=== PATIENT | male | born 1985 | race Two or more races ===

== ENCOUNTER 2019-06-17 19:01 | Emergency (ER) | payer SELFPAY ==
[~2019-06-17] VITALS: Ht 167.6 cm; Wt 65.8 kg
[2019-06-17 19:40] VITALS: BP 132/86
[2019-06-17] MEDS ORDERED: FLUORESCEIN SOD 1 MG TEST STRIP LEFTEYE ONE (21:00)
[2019-06-17] MEDS ORDERED: TETRACAINE HCL 0.5% OPTH(EYE) SOLN 4ML LEFTEYE ONE (21:00)
== END 2019-06-17 21:44 | disposition home or self-care (01) ==
LOC: ER 19:04
DX: S05.8X2A Other injuries of left eye and orbit, initial encounter (principal); X58.XXXA Exposure to other specified factors, initial encounter; Y93.89 Activity, other specified; Y99.8 Other external cause status; Y92.89 Other specified places as the place of occurrence of the external cause

== ENCOUNTER 2020-05-02 13:50 | Inpatient (IN) | payer MEDICAID, OTHER ==
[~2020-05-02] VITALS: Ht 167.6 cm; Wt 60.8 kg
[2020-05-02] MEDS ORDERED: SODIUM CHLORIDE 0.9% 1,000 ML IVB ONE (14:07)
[2020-05-02] MEDS ORDERED: PANTOPRAZOLE 40 MG/10 ML VIAL INJ IV STA (14:07)
[2020-05-02] MEDS ORDERED: KETOROLAC TROMETH 30 MG/ML 1ML VIAL IV ONE (14:15)
[2020-05-02] MEDS ORDERED: ONDANSETRON HCL 4 MG/2 ML VIAL IV ONE (14:15)
[2020-05-02 14:24] LABS: Urine WBC None Seen /hpf (0 - 3)
[2020-05-02 14:41] LABS: Urine Bacteria FEW /hpf (None Seen); Urine Blood Negative /uL (Negative); Urine Specific Gravity 1.007 (1.001-1.035)
[2020-05-02 15:45] LABS: Basophils # (auto) 0.3 10 ^3/uL (0-0.2); Basophils % (auto) 1.8 % (0.0-2.0); Eosinophils # (auto) 0.1 10 ^3/uL (0-0.8); Eosinophils % (auto) 0.7 % (0.0-7.0); Hemoglobin 15.9 g/dL (13.5-17.5); Lymphocytes # (auto) 3.2 10 ^3/uL (0.4-5.4); Lymphocytes % (auto) 18.9 % (10.0-50.0); Mean Corpuscular Volume 68.1 fL (80.0-100.0); Monocytes # (auto) 1.3 10 ^3/uL (0-1.3); Monocytes % (auto) 7.5 % (0.0-12.0); Neutrophils # (auto) 12.1 10 ^3/uL (1.6-8.6); Neutrophils % (auto) 71.1 % (37.0-80.0); Nucleated Red Blood Cells % 0.3 %; Platelet Count (auto) 305 10^3/uL (140-450); Red Blood Cells 4.99 10^6/uL (4.5-5.90)
[2020-05-02 15:46] LABS: Mean Corpuscular Hemoglobin 31.9 pg (28.0-32.0); Mean Corpuscular Hgb Conc. 46.9 g/dL (32.0-36.0)
[2020-05-02] MEDS ORDERED: MORPHINE SULF INJ 2 MG/ML SYRINGE 1ML IV PRN (16:00)
[2020-05-02] MEDS ORDERED: NITROGLYCERIN 0.4 MG SL TAB SL PRN (16:00)
[2020-05-02] MEDS ORDERED: SODIUM CHLORIDE 0.9% 1,000 ML IV SCH (16:20)
[2020-05-02] MEDS ORDERED: cefTRIAXone 1GM/50ML D5W 50 ML IV ONE (16:30)
[2020-05-02] MEDS ORDERED: FAMOTIDINE (10MG/ML) 2ML VL IV SCH (16:30)
[2020-05-02] MEDS: LACTATED RINGER'S 1,000 ML IV SCH ×2 (16:38→23:10)
[2020-05-02 18:34] LABS: Alanine Aminotransferase 57 U/L (16-61); Alkaline Phosphatase 134 U/L (45-117); Anion Gap 15.6 (5-15); Aspartate Aminotransferase 55.2 U/L (15-37); BUN/Creatinine Ratio 15.6; Blood Urea Nitrogen 7 mg/dL (7-18); Calcium 8.4 mg/dL (8.5-10.1); Carbon Dioxide 26.4 mmol/L (21-32); Chloride 102 mmol/L (98-107); GFR African American 278 mL/min; GFR Non-African American 230 mL/min; Glucose 80.4 mg/dL (74-106); Sodium 144 mmol/L (136-145)
[2020-05-02 18:35] LABS: Albumin 3.6 g/dL (3.4-5.0); Bilirubin, Total 0.2 mg/dL (0.2-1.0); Total Protein 6.2 g/dL (6.4-8.2)
[2020-05-02 18:47] LABS: Lipase 160.8 U/L (73-393)
[2020-05-02] MEDS: MORPHINE SULF INJ 2 MG/ML SYRINGE 1ML IV PRN ×2 (18:56→23:12)
[2020-05-02 19:04] LABS: Cholesterol 288 mg/dL (< 200); HDL Cholesterol 29 mg/dL (40-59); Triglycerides > 4000 mg/dL (< 150)
[2020-05-02 22:00] VITALS: BP 142/81
[2020-05-02] MEDS: metroNIDAZOLE 500MG/100ML 100 ML IV SCH (22:15)
[2020-05-02] MEDS: PANTOPRAZOLE 40 MG/10 ML VIAL INJ IV SCH (22:15)
[2020-05-02] MEDS: PROMETHAZINE HCL 25 MG/ML 1ML IV PRN (23:14)
[2020-05-03] VITALS (15 sets, daily range): BP systolic 99–127; BP diastolic 54–85
[2020-05-03] MEDS: MORPHINE SULF INJ 2 MG/ML SYRINGE 1ML IV PRN ×3 (03:12→11:26)
[2020-05-03] MEDS: LACTATED RINGER'S 1,000 ML IV SCH ×3 (06:37→16:30)
[2020-05-03] MEDS: metroNIDAZOLE 500MG/100ML 100 ML IV SCH ×3 (06:37→21:43)
[2020-05-03] MEDS: PROMETHAZINE HCL 25 MG/ML 1ML IV PRN ×2 (06:48→16:37)
[2020-05-03 07:17] LABS: Lymphocytes # (auto) 2.3 10 ^3/uL (0.4-5.4); Monocytes # (auto) 1.1 10 ^3/uL (0-1.3); Neutrophils # (auto) 8.8 10 ^3/uL (1.6-8.6); Platelet Count (auto) 275 10^3/uL (140-450); White Blood Cell 12.4 10^3/uL (4.4-10.8)
[2020-05-03 07:20] LABS: Basophils # (auto) 0.1 10 ^3/uL (0-0.2); Basophils % (auto) 0.6 % (0.0-2.0); Eosinophils # (auto) 0.1 10 ^3/uL (0-0.8); Eosinophils % (auto) 1.1 % (0.0-7.0); Lymphocytes % (auto) 18.2 % (10.0-50.0); Monocytes % (auto) 9.3 % (0.0-12.0); Neutrophils % (auto) 70.8 % (37.0-80.0); Nucleated Red Blood Cells % 0.1 %
[2020-05-03 07:49] LABS: Potassium 3.8 mmol/L (3.5-5.1)
[2020-05-03 07:53] LABS: Albumin 1.5 g/dL (3.4-5.0)
[2020-05-03 09:13] LABS: Hemoglobin 10.6 g/dL (13.5-17.5); Red Blood Cells 3.47 10^6/uL (4.5-5.90)
[2020-05-03 09:14] LABS: Mean Corpuscular Hemoglobin 30.4 pg (28.0-32.0)
[2020-05-03 09:16] LABS: BUN/Creatinine Ratio 10.4; Bilirubin, Total 3.1 mg/dL (0.2-1.0); Total Protein 9.1 g/dL (6.4-8.2)
[2020-05-03] MEDS: cefTRIAXone 1GM/50ML D5W 50 ML IV SCH (11:02)
[2020-05-03] MEDS: PANTOPRAZOLE 40 MG/10 ML VIAL INJ IV SCH ×2 (11:02→21:43)
[2020-05-03] MEDS ORDERED: D5W 5% 1,000 ML IV PRN (11:15)
[2020-05-03] MEDS ORDERED: InsuLIN R (HUMAN) 100 UNITS in SODIUM CHL 0.9% 99 ML IV SCH (11:30)
[2020-05-03 12:00] LABS: Alcohol, Urine < 3.0 mg/dL (0-10); Amphetamine Screen, Urine NEGATIVE (NEGATIVE); Barbiturate Scree,Urine NEGATIVE (NEGATIVE); Benzodiazephine Screen, Urine NEGATIVE (NEGATIVE); Cannabinoid Screen, Urine POSITIVE (NEGATIVE); Cocaine Screen, Urine NEGATIVE (NEGATIVE); Opiate Scree,Urine NEGATIVE (NEGATIVE); Phencyclidine Screen, Urine NEGATIVE (NEGATIVE)
[2020-05-03] MEDS: ACCU-CHEK COMFORT CURVE STRIP VI SCH ×11 (12:00→23:02)
[2020-05-03] MEDS ORDERED: DEXTROSE 50% SYRINGE 50 ML IV ONE (13:10)
[2020-05-03] MEDS ORDERED: DEXTROSE (50%) 50ML SYRG IV ONE (13:15)
[2020-05-03] MEDS ORDERED: DEXTROSE (50%) 50ML SYRG IV PRN (14:15)
[2020-05-03 14:16] LABS: Calcium 8.8 mg/dL (8.5-10.1)
[2020-05-03] MEDS: D5W 5% 1,000 ML IV PRN (17:38)
[2020-05-03] MEDS: InsuLIN R (HUMAN) 100 UNITS in SODIUM CHL 0.9% 99 ML IV SCH (19:53)
[2020-05-04] VITALS (12 sets, daily range): BP systolic 99–132; BP diastolic 63–84
[2020-05-04] MEDS: ACCU-CHEK COMFORT CURVE STRIP VI SCH ×14 (00:15→23:39)
[2020-05-04] MEDS: InsuLIN R (HUMAN) 100 UNITS in SODIUM CHL 0.9% 99 ML IV SCH (00:16)
[2020-05-04] MEDS: D5W 5% 1,000 ML IV PRN ×3 (00:20→10:18)
[2020-05-04] MEDS: LACTATED RINGER'S 1,000 ML IV SCH ×4 (00:20→23:39)
[2020-05-04 05:00] LABS: Basophils # (auto) 0 10 ^3/uL (0-0.2); Basophils % (auto) 0.2 % (0.0-2.0); Eosinophils # (auto) 0.1 10 ^3/uL (0-0.8); Eosinophils % (auto) 1.1 % (0.0-7.0); Hematocrit 41.8 % (41.0-53.0); Hemoglobin 14.2 g/dL (13.5-17.5); Lymphocytes # (auto) 1.5 10 ^3/uL (0.4-5.4); Lymphocytes % (auto) 14.2 % (10.0-50.0); Mean Corpuscular Hemoglobin 31.8 pg (28.0-32.0); Mean Corpuscular Volume 93.5 fL (80.0-100.0); Monocytes # (auto) 0.6 10 ^3/uL (0-1.3); Monocytes % (auto) 5.5 % (0.0-12.0); Neutrophils # (auto) 8.1 10 ^3/uL (1.6-8.6); Nucleated Red Blood Cells % 0.1 %; Platelet Count (auto) 214 10^3/uL (140-450); Red Blood Cells 4.47 10^6/uL (4.5-5.90); Red Cell Distribution Width 13.3 % (11.8-14.3); White Blood Cell 10.3 10^3/uL (4.4-10.8)
[2020-05-04 05:12] LABS: Potassium 4.2 mmol/L (3.5-5.1)
[2020-05-04 05:15] LABS: BUN/Creatinine Ratio 6.3
[2020-05-04] MEDS: metroNIDAZOLE 500MG/100ML 100 ML IV SCH ×3 (05:44→21:57)
[2020-05-04] MEDS: PANTOPRAZOLE 40 MG/10 ML VIAL INJ IV SCH ×2 (09:36→21:57)
[2020-05-04] MEDS: cefTRIAXone 1GM/50ML D5W 50 ML IV SCH (09:36)
[2020-05-04] MEDS ORDERED: ACETAMINOPHEN 325 MG TAB PO PRN (16:15)
[2020-05-05] MEDS: ACCU-CHEK COMFORT CURVE STRIP VI SCH ×2 (04:17→08:19)
[2020-05-05 04:46] VITALS: BP 110/72
[2020-05-05] MEDS: LACTATED RINGER'S 1,000 ML IV SCH ×3 (05:35→18:06)
[2020-05-05 05:49] LABS: Basophils # (auto) 0 10 ^3/uL (0-0.2); Basophils % (auto) 0.6 % (0.0-2.0); Eosinophils # (auto) 0.3 10 ^3/uL (0-0.8); Eosinophils % (auto) 3.7 % (0.0-7.0); Hematocrit 40.8 % (41.0-53.0); Hemoglobin 13.5 g/dL (13.5-17.5); Lymphocytes # (auto) 2.1 10 ^3/uL (0.4-5.4); Lymphocytes % (auto) 28.5 % (10.0-50.0); Mean Corpuscular Hemoglobin 31.3 pg (28.0-32.0); Mean Corpuscular Hgb Conc. 33.1 g/dL (32.0-36.0); Mean Corpuscular Volume 94.5 fL (80.0-100.0); Monocytes # (auto) 0.6 10 ^3/uL (0-1.3); Monocytes % (auto) 8.4 % (0.0-12.0); Neutrophils # (auto) 4.2 10 ^3/uL (1.6-8.6); Neutrophils % (auto) 58.8 % (37.0-80.0); Platelet Count (auto) 174 10^3/uL (140-450); Red Blood Cells 4.31 10^6/uL (4.5-5.90); Red Cell Distribution Width 13.2 % (11.8-14.3); White Blood Cell 7.2 10^3/uL (4.4-10.8)
[2020-05-05] MEDS: metroNIDAZOLE 500MG/100ML 100 ML IV SCH ×3 (05:59→22:42)
[2020-05-05 06:05] LABS: BUN/Creatinine Ratio 8.5; Calcium 8.6 mg/dL (8.5-10.1); Potassium 3.6 mmol/L (3.5-5.1)
[2020-05-05 09:00] VITALS: BP 117/71
[2020-05-05] MEDS: cefTRIAXone 1GM/50ML D5W 50 ML IV SCH (09:55)
[2020-05-05] MEDS: PANTOPRAZOLE 40 MG/10 ML VIAL INJ IV SCH ×2 (09:56→22:42)
[2020-05-05 13:00] VITALS: BP 109/75
[2020-05-05 17:19] VITALS: BP 121/70
[2020-05-05 22:00] VITALS: BP 126/77
[2020-05-06] MEDS: LACTATED RINGER'S 1,000 ML IV SCH ×2 (01:35→08:15)
[2020-05-06 05:00] VITALS: BP 102/66
[2020-05-06] MEDS: metroNIDAZOLE 500MG/100ML 100 ML IV SCH (05:10)
[2020-05-06 05:35] LABS: Basophils # (auto) 0 10 ^3/uL (0-0.2); Basophils % (auto) 0.8 % (0.0-2.0); Eosinophils # (auto) 0.2 10 ^3/uL (0-0.8); Eosinophils % (auto) 5.4 % (0.0-7.0); Hematocrit 40.6 % (41.0-53.0); Hemoglobin 13.4 g/dL (13.5-17.5); Lymphocytes # (auto) 1.6 10 ^3/uL (0.4-5.4); Lymphocytes % (auto) 39.5 % (10.0-50.0); Mean Corpuscular Hemoglobin 31.1 pg (28.0-32.0); Mean Corpuscular Hgb Conc. 32.9 g/dL (32.0-36.0); Mean Corpuscular Volume 94.6 fL (80.0-100.0); Monocytes # (auto) 0.5 10 ^3/uL (0-1.3); Monocytes % (auto) 13.2 % (0.0-12.0); Neutrophils # (auto) 1.7 10 ^3/uL (1.6-8.6); Neutrophils % (auto) 41.1 % (37.0-80.0); Nucleated Red Blood Cells % 0.3 %; Platelet Count (auto) 172 10^3/uL (140-450); Red Blood Cells 4.29 10^6/uL (4.5-5.90); Red Cell Distribution Width 13.1 % (11.8-14.3); White Blood Cell 4.1 10^3/uL (4.4-10.8)
[2020-05-06 05:55] LABS: BUN/Creatinine Ratio 17.2; Calcium 8.3 mg/dL (8.5-10.1); Potassium 3.6 mmol/L (3.5-5.1)
[2020-05-06 08:58] VITALS: BP 106/69
[2020-05-06] MEDS: cefTRIAXone 1GM/50ML D5W 50 ML IV SCH (09:24)
[2020-05-06] MEDS: PANTOPRAZOLE 40 MG/10 ML VIAL INJ IV SCH (09:31)
[2020-05-06] MEDS ORDERED: FENO145T27 PO (11:02)
[2020-05-06 11:26] VITALS: BP 106/69
[2020-05-06 12:39] VITALS: BP 125/84
== END 2020-05-06 13:30 | disposition home or self-care (01) | DRG 282 ==
LOC: ER 13:50 → TELE 13:51 → TELE-CENTR 17:11 → ICU WEST 05-03 14:18 → TELE-WESTW 05-04 12:18
PROVIDERS: ADMIT Internal Medicine; ATTEND Internal Medicine Pulmonary Disease
DX: K85.20 Alcohol induced acute pancreatitis without necrosis or infection (principal); R65.10 Systemic inflammatory response syndrome (SIRS) of non-infectious origin without acute organ dysfunction; E78.1 Pure hyperglyceridemia; F10.10 Alcohol abuse, uncomplicated; F17.210 Nicotine dependence, cigarettes, uncomplicated; Y90.9 Presence of alcohol in blood, level not specified
CPT/HCPCS: 36415; 74176; 80048; 80053; 80061; 80307; 81001; 82150; 82962; 83605; 83690; 84478; 85025; 96361; 96365; 96366; 96375; C9113; G0378; J0696; J1815; J1885; J2405; J3490

== ENCOUNTER 2020-06-19 00:42 | Emergency (ER) | payer MEDICAID ==
[~2020-06-19] VITALS: Ht 167.6 cm; Wt 65.8 kg
[~2020-06-19 00:42] MED LIST: FENO145T27 PO
[2020-06-19] MEDS ORDERED: IOHEXOL 300 MG/ML 100ML BOTTLE IJ ONE (01:14)
[2020-06-19] MEDS ORDERED: SODIUM CHLORIDE 0.9% 1,000 ML IV ONE (01:15)
[2020-06-19 01:44] LABS: Basophils # (auto) 0.1 10 ^3/uL (0-0.2); Basophils % (auto) 0.8 % (0.0-2.0); Eosinophils # (auto) 0 10 ^3/uL (0-0.8); Eosinophils % (auto) 0.2 % (0.0-7.0); Hematocrit 42.8 % (41.0-53.0); Hemoglobin 14.5 g/dL (13.5-17.5); Lymphocytes # (auto) 2.4 10 ^3/uL (0.4-5.4); Lymphocytes % (auto) 25.4 % (10.0-50.0); Mean Corpuscular Hemoglobin 31.5 pg (28.0-32.0); Mean Corpuscular Hgb Conc. 33.9 g/dL (32.0-36.0); Mean Corpuscular Volume 92.9 fL (80.0-100.0); Monocytes % (auto) 10.2 % (0.0-12.0); Neutrophils % (auto) 63.4 % (37.0-80.0); Nucleated Red Blood Cells % 0.1 %; Platelet Count (auto) 282 10^3/uL (140-450); Red Blood Cells 4.61 10^6/uL (4.5-5.90); Red Cell Distribution Width 13.2 % (11.8-14.3); White Blood Cell 9.5 10^3/uL (4.4-10.8)
[2020-06-19 02:01] LABS: Alanine Aminotransferase 86 U/L (16-61); Albumin 4.3 g/dL (3.4-5.0); Anion Gap 9 (5-15); Aspartate Aminotransferase 54 U/L (15-37); BUN/Creatinine Ratio 18.6; Blood Urea Nitrogen 19 mg/dL (7-18); Calcium 8.7 mg/dL (8.5-10.1); Carbon Dioxide 25 mmol/L (21-32); Chloride 101 mmol/L (98-107); GFR African American 108 mL/min; GFR Non-African American 89 mL/min; Glucose 86 mg/dL (74-106); Potassium 3.9 mmol/L (3.5-5.1); Sodium 135 mmol/L (136-145)
[2020-06-19 02:04] LABS: Alkaline Phosphatase 119 U/L (45-117); Bilirubin, Total 1.2 mg/dL (0.2-1.0); Total Protein 9.1 g/dL (6.4-8.2)
[2020-06-19 02:57] LABS: Urine Bacteria FEW /hpf (None Seen); Urine Blood TRACE /uL (Negative); Urine Mucus FEW (None Seen); Urine Specific Gravity > 1.050 (1.001-1.035); Urine WBC 1 /hpf (0 - 3)
[2020-06-19 03:11] LABS: Amphetamine Screen, Urine POSITIVE (NEGATIVE); Barbiturate Scree,Urine NEGATIVE (NEGATIVE); Benzodiazephine Screen, Urine NEGATIVE (NEGATIVE); Cannabinoid Screen, Urine POSITIVE (NEGATIVE); Cocaine Screen, Urine NEGATIVE (NEGATIVE); Opiate Scree,Urine NEGATIVE (NEGATIVE); Phencyclidine Screen, Urine NEGATIVE (NEGATIVE)
[2020-06-19 05:04] VITALS: BP 98/86
== END 2020-06-19 05:34 | disposition home or self-care (01) ==
LOC: ER 00:42
DX: S01.81XA Laceration without foreign body of other part of head, initial encounter (principal); S40.029A Contusion of unspecified upper arm, initial encounter; S80.10XA Contusion of unspecified lower leg, initial encounter; W22.8XXA Striking against or struck by other objects, initial encounter; Y93.89 Activity, other specified; Y92.89 Other specified places as the place of occurrence of the external cause; Y99.8 Other external cause status
CPT/HCPCS: 12013; 36415; 70450; 71260; 72125; 74177; 80053; 80307; 80320; 81001; 85025; 96360; 99285; J7030; Q9967

== ENCOUNTER 2020-08-24 20:46 | Emergency (ER) | payer MEDICAID, OTHER ==
[~2020-08-24] VITALS: Ht 167.6 cm; Wt 65.8 kg
[2020-08-24] MEDS ORDERED: TETANUS-DIPTH-ACEL PERTUSSIS 0.5ML SYR Tdap IM ONE (21:30)
[2020-08-24] MEDS ORDERED: ONDANSETRON HCL 4 MG/2 ML VIAL IV ONE (22:15)
[2020-08-24] MEDS ORDERED: fentaNYL CITRATE 100 MCG/2 ML VL IV ONE (22:15)
[2020-08-24] MEDS ORDERED: IOHEXOL 350 MG/ML 100ML IJ ONE ×2 (22:21→23:47)
[2020-08-24 23:49] LABS: Basophils # (auto) 0.1 10 ^3/uL (0-0.2); Basophils % (auto) 0.4 % (0.0-2.0); Eosinophils # (auto) 0 10 ^3/uL (0-0.8); Eosinophils % (auto) 0.3 % (0.0-7.0); Hematocrit 42.2 % (41.0-53.0); Hemoglobin 14.7 g/dL (13.5-17.5); Lymphocytes # (auto) 1.8 10 ^3/uL (0.4-5.4); Lymphocytes % (auto) 13.7 % (10.0-50.0); Mean Corpuscular Hemoglobin 32.8 pg (28.0-32.0); Mean Corpuscular Hgb Conc. 34.9 g/dL (32.0-36.0); Mean Corpuscular Volume 94.1 fL (80.0-100.0); Monocytes # (auto) 0.9 10 ^3/uL (0-1.3); Monocytes % (auto) 6.6 % (0.0-12.0); Neutrophils # (auto) 10.6 10 ^3/uL (1.6-8.6); Nucleated Red Blood Cells % 0.1 %; Red Blood Cells 4.48 10^6/uL (4.5-5.90); Red Cell Distribution Width 13.8 % (11.8-14.3); White Blood Cell 13.4 10^3/uL (4.4-10.8)
[2020-08-25 00:02] LABS: Albumin 4.2 g/dL (3.4-5.0); Magnesium 1.9 mg/dL (1.6-2.6)
[2020-08-25 00:05] LABS: Calcium 8.2 mg/dL (8.5-10.1)
[2020-08-25 00:09] LABS: INR 0.97 (0.9-1.15); Partial Thromboplastin Time 27.4 sec (23.0-31.2)
[2020-08-25 00:12] LABS: Bilirubin, Total 0.5 mg/dL (0.2-1.0)
[2020-08-25] MEDS ORDERED: ceFAZolin 1GM/50ML 100 ML IV ONE (00:45)
[2020-08-25] MEDS ORDERED: fentaNYL CITRATE 100 MCG/2 ML VL IV ONE (01:15)
[2020-08-25 02:40] VITALS: BP 151/89
== END 2020-08-25 02:49 | disposition home or self-care (01) ==
LOC: ER 20:48
DX: S41.031A Puncture wound without foreign body of right shoulder, initial encounter (principal); F17.210 Nicotine dependence, cigarettes, uncomplicated; W34.00XA Accidental discharge from unspecified firearms or gun, initial encounter; Y93.89 Activity, other specified; Y92.89 Other specified places as the place of occurrence of the external cause; Y99.8 Other external cause status
CPT/HCPCS: 36415; 71260; 73030; 80053; 83735; 85025; 85610; 85730; 86850; 86900; 86901; 90471; 90715; 96365; 96375; 96376; 99285; J0690; J2405; J3010; Q9967

== ENCOUNTER 2025-02-11 12:48 | Emergency (ER) | payer MEDICAID, OTHER ==
[~2025-02-11] VITALS: Ht 170.2 cm; Wt 68.0 kg
--- NOTE | 2025-02-11 12:57 | ED.PDOC ---
History of Present Illness HPI Comments 39 year old male presents to the ED for the c/c of an Inhalation Injury. Pt states that he was loading something into his car when a can of Break finish cleaner sprayed into his face approx 30 mins ago. Pt states that he experienced Chest Burning, SOB, N/ and 3 episodes of /V after inspiration. Pt is noted to be cu rrently SAT on 96% room air. Pt has a Social Hx of Marijuana and Tobacco abuse. No other symptoms or modifying factors reported at this time. Time Seen by MD: 12:53 Primary Care Provider: LESLEYK Reviewed Notes: Nurses Notes, Plastic Tool Maker Notes, Medications, Allergies Allergies: Coded Allergies: NO KNOWN ALLERGIES (Unverified , 06/17/19) Home Meds Active Scripts Fenofibrate (FENOFIBRATE) 145 Mg Tab, 1 TAB PO DAILY, #90 TAB 1 Refill Prov:AJ ALEJO MD 05/06/20 Information Source: Patient, Emergency Med Personnel Mode of Arrival: EMS Severity: Moderate Timing: Minutes Duration: Since onset, Minutes Prehospital treatment: Oxygen Past Medical History Past Medical History (Other): Hepititis C Surgical History: Denies all surgeries Family History Family History: No family hx of DM Social History Smoker: Cigarettes Alcohol: Occasionally Drugs: Marijuana Lives In: Home Constitutional: denies: chills, diaphoresis, fatigue, fever, malaise, sweats, weakness, others EENTM: denies: blurred vision, double vision, ear bleeding, ear discharge, ear drainage, ear pain, ear ringing, eye pain, eye redness, hearing loss, mouth pain, mouth swelling, nasal discharge, nose bleeding, nose congestion, nose pain, photophobia, tearing, throat pain, throat swelling, voice changes, others Respiratory: reports: SOB at rest, shortness of breath; denies: cough, hemoptysis, orthopnea, SOB with excertion, stridor, wheezing, others Cardiovascular: reports: chest pain; denies: dizzy spells, diaphoresis, Dyspnea on exertion, edema, irregular heart beat, left arm pain, lightheadedness, palpitations, PND, syncope, others Gastrointestinal: reports: nausea, vomiting; denies: abdomen distended, abdominal pain, blood streaked bowels, constipated, diarrhea, dysphagia, difficulty swallowing, hematemesis, melena, poor appetite, poor fluid intake, rectal bleeding, rectal pain, others Genitourinary: denies: burning, dysuria, flank pain, frequency, hematuria, incontinence, penile discharge, penile sore, pain, testicle pain, testicle swelling, urgency, others Neurological: denies: dizziness, fainting, headache, left sided numbness, left sided weakness, numbness, paresthesia, pre-existing deficit, right sided numbness, right sided weakness, seizure, speech problems, tingling, tremors, weakness, others Musculoskeletal: denies: back pain, gout, joint pain, joint swelling, muscle pain, muscle stiffness, neck pain, others Integumetry: denies: bruises, change in color, change in hair/nails, dryness, laceration, lesions, lumps, rash, wounds, others Allergic/Immunocompromised: denies: Difficulty Healing, Frequent Infections, Hives, Itching, others Hematologic/Lymphatic: denies: anemia, blood clots, easy bleeding, easy bruising, swollen glands, others Endocrine: denies: excessive hunger, excessive sweating, excessive thirst, excessive urination, flushing, intolerance to cold, intolerance to heat, unexplained weight gain, unexplained weight loss, others Psychiatric: denies: anxiety, bipolar disorder, depression, hopeless, panic disorder, schizophrenia, sleepless, suicidal, others All Other Systems: Reviewed and Negative Physical Exam General Appearance: No Apparent Distress HEENT: Normal ENT Inspection, Pharynx Normal, TMs Normal Neck: Full Range of Motion, Non-Tender, Normal, Normal Inspection Respiratory: Chest Non-Tender, Lungs Clear, No Accessory Muscle Use, No Respiratory Distress, Normal Breath Sounds Cardiovascular: No Edema, No JVD, No Murmur, No Gallop, Normal Peripheral Pulses, Regular Rate/Rhythm Breast Exam: Deferred Gastrointestinal: No Organomegaly, Non Tender, No Pulsatile Mass, Normal Bowel Sounds, Soft Genitalia: Deferred Pelvic: Deferred Rectal: Deferred Extremities: No calf tenderness, Normal capillary refill, Normal inspection, No rmal range of motion, Non-tender, No pedal edema Musculoskeletal : Apperance: Normal Neurologic: Alert, reed man II-XII nml as Tested, No Motor Deficits, Normal Affect, Normal Mood, No Sensory Deficits Cerebellar Function: Normal Reflexes: Normal Skin: Dry, Normal Color, Warm Lymphatic: No Adenopathy Was a procedure done? Was a procedure done?: No Differential Dx Considerations may include: Inhalation injury X-Ray, Labs, Meds, VS IMPRESSION: No acute disease. At this time the patient is being discharged The patient will follow up with the primary care doctor The patient will return to the emergency department's condition worsens The patient's diagnosis is inhalation injury We did call poison control and got confirmation that the patient just needs a chest x-ray Images Reviewed?: Images reviewed and evaluated by me Time of 1ST Reevaluation: 13:23 Reevaluation 1ST: Unchanged Patient Education/Counseling: Diagnosis, Treatment, Prognosis, Need For Follow Up Family Education/Counseling: No Family Present SEPSIS Sepsis Screen Physician Orders Chest Portable (02/11/25 12:53) Departure 1 Departure Time of Disposition: 13:46 Impression: Primary Impression: Inhalation injury Disposition: 01 HOME / SELF CARE / HOMELESS Condition: Fair Discharged With: Self Critical Care Note Critical Care Time?: No Stability Stability form required: No Heart Score Heart Score: Heart Score Response (Comments) Value History N/A 0 EKG N/A 0 Age N/A 0 Risk Factors N/A 0 Troponin N/A 0 Total 0 I personally scribed for MARIUSZ ACEVEDO MD ([email or web address]) on 02/11/25 at 12:57. Electronically submitted by Corey Dailey ([email or web address]). I personally scribed for MARIUSZ ACEVEDO MD ([email or web address]) on 02/11/25 at 13:44. Electronically submitted by Corey Dailey ([email or web address]). MARIUSZ ACEVEDO MD Feb 11, 2025 12:57
[2025-02-11 13:00] VITALS: TEMP 97.9
--- NOTE | 2025-02-11 13:31 | DVH ---
CHEST RADIOGRAPH Indication: inhalation injury Technique: Single frontal view of the chest was obtained COMPARISON: None FINDINGS: Lines and Tubes: None Lungs: Clear Pleura: No effusion. No pneumothorax. Cardiomediastinal contours: Unremarkable Bones: Unremarkable IMPRESSION: No acute disease.
[2025-02-11 14:09] VITALS: BP 114/71; PULSE 57
[2025-02-11 14:35] VITALS: RESP 16; O2SAT 94
== END 2025-02-11 14:13 | disposition home or self-care (01) ==
LOC: ER 12:48 → EDBD 12:48 → ER 14:13
DX: J70.5 Respiratory conditions due to smoke inhalation (principal); F17.210 Nicotine dependence, cigarettes, uncomplicated
CPT/HCPCS: 71045